=== PATIENT | female | born 1965 | race Caucasian/White ===

== ENCOUNTER 2020-07-26 14:05 | Outpatient (CLI) | payer OTHER, SELFPAY ==
--- NOTE | ~2020-07-26 | US_ITS ---
EXAMINATION: US venous doppler [facility] DATE: 07/26/2020 15:00 INDICATION: Lower limb pain and localized lump posterior to the right knee TECHNIQUE: Grayscale ultrasound images without and with compression and Doppler ultrasound images of the bilateral lower extremity veins were obtained. COMPARISON: None. FINDINGS: The visualized portions of right common femoral vein, profunda (deep) femoral vein, femoral vein, pop liteal vein, posterior tibial veins, peroneal veins, gastrocnemius vein and greater saphenous vein ou tflow are patent. 3.9 x 1.8 x 3.1 cm anechoic Juares's cyst at the right popliteal fossa. The visualized portions of left common femoral vein, profunda femoral vein, femoral vein, popliteal v ein, posterior tibial veins, peroneal veins, gastrocnemius vein and greater saphenous vein outflow ar e patent. IMPRESSION: 1. No deep venous thrombosis in either lower limb. 2. Moderate-sized Juares cyst at the right popliteal fossa which may account for the palpable abnormal ity. Reviewed, dictated and finalized at location A. IMPRESSION: 1. No deep venous thrombosis in either lower limb. 2. Moderate-sized Juares cyst at the right popliteal fossa which may account for the palpable abnormality.
== END 2020-07-26 14:06 | disposition home or self-care (01) ==
PROVIDERS: PCP Internal Medicine; Visit Provider Nurse Practitioner
DX: M79.606 Pain in leg, unspecified (principal); M71.21 Synovial cyst of popliteal space [Baker], right knee
CPT/HCPCS: 93970

== ENCOUNTER 2020-10-25 08:57 | Outpatient (CLI) | payer OTHER, SELFPAY ==
--- NOTE | 2020-10-25 12:00 | NEURO_ITS ---
IMPRESSION: # Complains of tingling of right lower extremity intermittently; History of cystic mass in right popliteal fossa of long duration. # Normal nerve conduction study including motor and sensory nerves. # Normal needle/EMG exam. # Clinical correlation recommended. Nerve Conduction Studies Anti Sensory Summary Table Stim Site NR Peak (ms) P-T Amp (?V) Site1 Site2 Delta-P (ms) Dist (cm) Storm (m/s) Left Sup Fibular Anti Sensory (Ant Lat Mall) 14 cm 3.1 19.5 14 cm Ant Lat Mall 3.1 16.0 52 Right Sup Fibular Anti Sensory (Ant Lat Mall) 14 cm 2.9 7.0 14 cm Ant Lat Mall 2.9 16.0 55 Left Sural Anti Sensory (Lat Mall) Calf 2.9 25.7 Calf Lat Mall 2.9 16.0 55 Right Sural Anti Sensory (Lat Mall) Calf 3.6 15.9 Calf Lat Mall 3.6 16.0 44 Motor Summary Table Stim Site NR Onset (ms) O-P Amp (mV) Site1 Site2 Delta-0 (ms) Dist (cm) Storm (m/s) Left Peroneal Motor (Vastus Med) Ankle 4.1 1.6 Popit Ankle 7.8 38.0 49 Popit 11.9 1.1 Right Peroneal Motor (Vastus Med) Ankle 4.1 2.0 Popit Ankle 7.1 35.0 49 Popit 11.2 1.6 Left Tibial Motor (Abd Bridges Brev) Ankle 5.0 5.6 Knee Ankle 7.2 38.0 53 Knee 12.2 2.0 Right Tibial Motor (Abd Bridges Brev) Ankle 5.3 5.8 Knee Ankle 8.4 37.0 44 Knee 13.7 4.0 F Wave Studies NR F-Lat (ms) L-R F-Lat (ms) Left Peroneal (Mrkrs) (EDB) 48.47 0.00 Right Peroneal (Mrkrs) (EDB) 48.47 0.00 Left Tibial (Mrkrs) (Abd Hallucis) 49.70 0.40 Right Tibial (Mrkrs) (Abd Hallucis) 50.10 0.40 EMG Side Muscle Nerve Root Ins Act Fibs Amp Dur Recrt Comment Right AntTibialis Dp Br Fibular L4-5 Nml Nml Nml Nml Nml Right Gastroc Tibial S1-2 Nml Nml Nml Nml Nml Right Fibularis Long Sup Br Fibular L5-S1 Nml Nml Nml Nml Nml Right Flex Dig Long Tibial L5-S2 Nml Nml Nml Nml Nml Right Ext Dig Brev Dp Br Fibular L5, S1 Nml Nml Nml Nml Nml Left AntTibialis Dp Br Fibular L4-5 Nml Nml Nml Nml Nml Left Gastroc Tibial S1-2 Nml Nml Nml Nml Nml Left Fibularis Long Sup Br Fibular L5-S1 Nml Nml Nml Nml Nml Left Flex Dig Long Tibial L5-S2 Nml Nml Nml Nml Nml Left Ext Dig Brev Dp Br Fibular L5, S1 Nml Nml Nml Nml Nml MTDD
== END 2020-10-25 08:58 | disposition home or self-care (01) ==
PROVIDERS: PCP Internal Medicine; Visit Provider Nurse Practitioner
DX: R20.2 Paresthesia of skin (principal)
CPT/HCPCS: 95886; 95910

== ENCOUNTER 2020-10-31 16:33 | Outpatient (CLI) | payer OTHER, SELFPAY ==
--- NOTE | ~2020-10-31 | MR_ITS ---
EXAMINATION: MR lumbar spine wo con DATE: 10/31/2020 17:19 INDICATION: Lumbar radiculopathy. TECHNIQUE: Magnetic resonance imaging (MRI) of the lumbar spine was performed without intravenous con trast. Sequences included sagittal T2-weighted FSE, sagittal T2-weighted FS FSE, sagittal T1-weighted FSE, and axial T2-weighted FSE. COMPARISON: None FINDINGS: Minimal thoracolumbar dextrocurvature. 3 mm retrolisthesis L5 on S1. Vertebral body heights are esteban l. 6 mm T2 hyperintense lesion in T12 which is isointense to the surrounding marrow on T1-weighted im ages most likely a hemangioma. Severe disc height loss at L5-S1 with degenerative fibrofatty and fibr ovascular endplate changes. Mild disc height loss at L2-L3, L3-L4 and moderate disc height loss at L4 -L5. The conus medullaris terminates at L2. There is normal signal in the caudal spinal cord. 7 mm T2 hyperintense left renal cyst. Paravertebral soft tissues are unremarkable. The following disc levels are specifically discussed: T12-L1: The disc does not extend beyond the endplate margin. There is no facet joint osteoarthritis. There is no neural foraminal stenosis. There is no central canal stenosis. L1-L2: The disc does not extend beyond the endplate margin. There is minimal bilateral facet joint os teoarthritis. There is no neural foraminal stenosis. There is no central canal stenosis. L2-L3: Disc is mildly bulging with superimposed annular fissure and right paracentral disc extrusion with disc material extending couple millimeters cephalad and caudal to the level of the endplates. Th ere is minimal bilateral facet joint osteoarthritis. There is mild bilateral neural foraminal stenosi s. There is mild central canal stenosis. L3-L4: Disc is bulging with annular fissure. There is mild left and moderate right facet joint osteoa rthritis. There is mild bilateral neural foraminal stenosis. There is mild central canal stenosis. L4-L5: Disc is bulging with annular fissure. There is minimal bilateral facet joint osteoarthritis. T here is mild bilateral neural foraminal stenosis. There is mild central canal stenosis. L5-S1: Annular fissure and broad-based disc extrusion extending from foraminal zone to foraminal zone with disc material extending a few millimeter beyond the margins of the endplates. There is mild rig ht and mild to moderate left facet joint osteoarthritis. There is mild to moderate left and moderate right neural foraminal stenosis. There is minimal central canal stenosis. IMPRESSION: 1. Severe lumbosacral and moderate lumbar spondylosis. Reviewed, dictated and finalized at location A. [employer]
== END 2020-10-31 16:34 | disposition home or self-care (01) ==
PROVIDERS: PCP Internal Medicine; Visit Provider Nurse Practitioner
DX: M54.16 Radiculopathy, lumbar region (principal); M43.07 Spondylolysis, lumbosacral region; M43.06 Spondylolysis, lumbar region
CPT/HCPCS: 72148

== ENCOUNTER → 2021-02-03 02:49 | Outpatient (CLI) | payer OTHER, SELFPAY ==
[2021-02-03 19:43] LABS: SARS-CoV-2 RNA PCR Negative
== END ==
PROVIDERS: PCP Internal Medicine; Visit Provider Internal Medicine Gastroenterology
DX: Z01.812 Encounter for preprocedural laboratory examination (principal); Z20.822 Contact with and (suspected) exposure to COVID-19
CPT/HCPCS: C9803; U0003; U0005

== ENCOUNTER 2021-02-07 00:19 | Day surgery (SDC) | payer OTHER, SELFPAY ==
[2021-01-25 13:53] VITALS: BMI 22.9
[2021-02-07 11:15] VITALS: BP 130/87; PULSE 79; RESP 16; TEMP 36.9; O2SAT 98
[2021-02-07] MEDS: LACTATED RINGERS 1,000 ML 150 ML IV CONT (11:27)
--- NOTE | 2021-02-07 12:47 | WPDGICN ---
GI Consult Note Consult date/time: 02/07/21 12:47 HPI: Reason for visit colonoscopy. This very pleasant lady seen in consultation request of the primary physician. Impression: Screening and surveillance colonoscopy. The patient has a history of adenomatous colon polyps and a strong family history colon cancer. Seizure disorder. Marijuana use. Tobacco abuse. Recommendation: Colonoscopy. History: This very pleasant lady has a negative GI review of systems. She has a history adenomatous colon polyps. Patient also has a strong family history of colon cancer. She is here for colonoscopy. Physical examination: General: very pleasant patient in no acute distress. HEENT: Head was normocephalic sclerae is clear mouth without masses neck was supple. Heart: Rate rhythm regular without S3 or S4. Lungs: CTA. Abdomen: Soft with no guarding or rigidity. Bowel sounds were active. Neurologic: Cranial nerves 2 through 12 intact. No focal defects. No clonus. Musculoskeletal system: Revealed no joint tenderness or swelling no muscle atrophy. Extremities: Reveal no significant edema. Skin: Warm and dry with normal turgor. Mental status: intact. Patient is alert and oriented. Review of Systems Review of Systems: All systems reviewed & are unremarkable except as noted in HPI and below PMFSH Past Medical History Medical History (Updated 11/06/20 @ 14:07 by Phuc Blackburn DO) Depression Measles Mumps Seizure disorder Surgical History Surgical History (Updated 12/15/19 @ 07:22 by Shelly Ponce CMA) H/O LEEP 2007 H/O lumpectomy History of cholecystectomy Family History Family History (Updated 12/15/19 @ 13:27 by Shelly Ponce CMA) Mother Family history of cardiovascular disease Heart disease Breast cancer Lung cancer Father Brain aneurysm Carcinoma of colon Social History Social History (Updated 12/15/19 @ 13:27 by Shelly Ponce CMA) Smoking packs per day: 1 Smoking cigarettes per day: 20.0 Years smoked: 10 Smoking pack-years: 10.00 Smoking status: Current every day smoker Tobacco type: cigarettes Smoking end date: 10/20/11 Alcohol intake: never Living arrangements: with family Gender identity (if verbalized by the patient): Female Spiritual care concerns: No Meds Home Medications and Allergies Home Medications Medication Instructions Recorded Confirmed Type cannabidiol 100 mg/mL oral solution PO 12/15/19 11/06/20 History Allergies Allergy/AdvReac Type Severity Reaction Status Date / Time codeine Allergy Unknown Nausea Verified 02/07/21 11:13 ibuprofen Allergy Unknown Verified 02/07/21 11:13 Vital Signs Vital Signs - 24 hr 02/07/21 11:15 Temperature 36.9 C Pulse Rate 79 Respiratory Rate 16 Blood Pressure 130/87 Pulse Oximetry 98
[2021-02-07 13:04] VITALS: BP 101/57; PULSE 76; RESP 20; O2SAT 100
[2021-02-07 13:14] VITALS: BP 88/64; PULSE 72; RESP 21; O2SAT 100
[2021-02-07 13:24] VITALS: BP 100/66; RESP 20; O2SAT 99
== END 2021-02-07 13:45 | disposition home or self-care (01) ==
PROVIDERS: PCP Internal Medicine; Visit Provider Internal Medicine Gastroenterology
PROC: 0DJD8ZZ Inspection of Lower Intestinal Tract, Via Natural or Artificial Opening Endoscopic (ICD-10-PCS; CPT 45378; principal; 2021-02-07 12:30)
DX: Z12.11 Encounter for screening for malignant neoplasm of colon (principal); K64.8 Other hemorrhoids; Z86.010 Personal history of colon polyps; Z80.0 Family history of malignant neoplasm of digestive organs; G40.909 Epilepsy, unspecified, not intractable, without status epilepticus; F32.9 Major depressive disorder, single episode, unspecified; F17.210 Nicotine dependence, cigarettes, uncomplicated; F12.90 Cannabis use, unspecified, uncomplicated
CPT/HCPCS: 45378; J2704; J7120

== ENCOUNTER 2021-12-24 14:04 | Outpatient (CLI) | payer OTHER, SELFPAY ==
[2021-12-24 14:27] LABS: Basophils Percent Auto 0.5 % (0.2-1.2); Eosinophils Absolute Auto 0.1 K/mm3 (0-0.3); Eosinophils Percent Auto 1.2 % (0-4.4); Hematocrit 43.3 % (37.0-47.0); Hemoglobin 14.3 g/dL (12.0-15.0); Immature Granulocyte Absolute 0.01 K/mm3 (0.00-0.031); Immature Granulocyte Percent A 0.1 % (0-0.5); Lymphocytes Absolute Auto 3.89 K/mm3 (0.9-3.2); Lymphocytes Percent Auto 51.1 % (18.3-44.2); Mean Corpuscular Hemoglobin 31.2 pg (26-34); Mean Corpuscular Volume 94.5 fl (80-100); Mean Platelet Volume 9.8 fl (7.4-10.4); Monocytes Absolute Auto 0.5 K/mm3 (0.1-0.6); Neutrophils Absolute Auto 3.1 K/mm3 (1.3-6.7); Neutrophils Percent Auto 40.1 % (45.5-73.1); Platelet Count Result 206 k/mm3 (150-375); Red Blood Count 4.58 M/mm3 (4.2-5.4); Red Cell Distribution Width 11.9 % (11.5-14.5); White Blood Count 7.6 K/mm3 (4.5-10.0)
[2021-12-24 14:38] LABS: Alanine Aminotransferase 20 U/L (4-35); Albumin Level 4.8 g/dL (3.5-5.1); Alkaline Phosphatase 82 U/L (38-126); Anion Gap 4 mmol/L (8-16); Aspartate Amino Transferase 37 U/L (14-36); Bilirubin,Total 0.8 mg/dL (0.2-1.3); Blood Urea Nitrogen 17 mg/dL (7-17); Calcium 9.6 mg/dL (8.4-10.2); Carbon Dioxide 31 mmol/L (22-30); Chloride 105 mmol/L (98-107); Cholesterol 285 mg/dL (0-200); Estimated Glomerular Filt Rate > 60; Glucose 97 mg/dL (65-110); HDL Direct 65 mg/dL; Sodium 140 mmol/L (137-145); Triglycerides 118 mg/dL (<150)
[2021-12-24 14:49] LABS: LDL Cholesterol Direct 148 mg/dL
[2021-12-24 17:03] LABS: Vitamin D 25 Hydroxy 40.9 ng/mL
== END 2021-12-24 14:05 | disposition home or self-care (01) ==
LOC: ANHLAB 14:07
PROVIDERS: PCP Internal Medicine; Visit Provider Nurse Practitioner
DX: E55.9 Vitamin D deficiency, unspecified (principal); F33.1 Major depressive disorder, recurrent, moderate; Z13.29 Encounter for screening for other suspected endocrine disorder; Z13.220 Encounter for screening for lipoid disorders
CPT/HCPCS: 36415; 80053; 80061; 82306; 84443; 85025

== ENCOUNTER 2022-01-01 08:31 | Outpatient (CLI) | payer OTHER, SELFPAY ==
--- NOTE | 2022-01-01 08:50 | ECHO_ITS ---
Patient Info Name: Iliana Baires Age: 56 years : 1965 Gender: Female Ht: 62 in Wt: 128 lbs BSA: 1.60 m2 HR: 60 bpm BP: 120 / 82 mmHg Technical Quality: Good Exam Date: 01/01/2022 9:13 AM Exam Location: [facility] Patient Status: Outpatient Admit Date: 01/01/2022 Staff Ordering Physician: Ira Montez NP Candy Puller: Anson Villegas RDCS, RT Attending Provider: Ira Montez NP Referring Physician: Melida GRANGER; Exam Type: CA echo doppler color flow Study Info Indications R07.9 - Chest pain, unspecified Complete two-dimensional, color flow and Doppler transthoracic echocardiogram is performed. Strain analysis performed. Summary 1. Complete two-dimensional, color flow and Doppler transthoracic echocardiogram is performed. 2. Left ventricular chamber dimension is normal. 3. Left ventricular systolic function is normal, estimated at 60-65%. 4. The left ventricular diastolic function is grade I diastolic dysfunction. 5. E/e' 7 is not elevated. 6. Global longitudinal strain is normal at -22.9%. 7. There is mild mitral valve regurgitation. 8. There is mild tricuspid valve regurgitation. 9. No pulmonary hypertension, estimated pulmonary arterial systolic pressure is 26 mmHg. Left Ventricle E/e' 7 is not elevated. Global longitudinal strain is normal at -22.9%. Left ventricular chamber dimension is normal. Left ventricular systolic function is normal, estimated at 60-65%. The left ventricular diastolic function is grade I diastolic dysfunction. Right Ventricle Right ventricular systolic function is normal and with normal TAPSE 2.9 cm. Right ventricular chamber dimension is normal. Left Atria Left atrial chamber dimension is normal. Right Atria Right atrial chamber dimension is normal. Aortic Valve The aortic valve is trileaflet. There is no aortic valve stenosis. There is no aortic valve regurgitation. Pulmonic Valve There is no pulmonic regurgitation. Mitral Valve There is no mitral valve stenosis. There is mild mitral valve regurgitation. Tricuspid Valve There is mild tricuspid valve regurgitation. No pulmonary hypertension, estimated pulmonary arterial systolic pressure is 26 mmHg. Pericardium/Pleural There is no pericardial effusion. Inferior Vena Cava Normal inferior vena cava with >50% collapse upon inspiration consistent with normal right atrial pressure, 5 mmHg. Aorta The aortic root size at the sinus of Valsalva is normal. Left Ventricular Outflow Tract Name Value Normal LVOT 2D LVOT Diameter 2.0 cm LVOT Doppler LVOT Peak Gradient 4 mmHg LVOT Mean Gradient 2 mmHg LVOT VTI 22 cm LVOT VTI/AV VTI Ratio 0.8 LVOT Stroke Volume 68 ml LVOT CO 3.9 l/min LVOT CI 2.4 l/min/m2 Mitral Valve Name Value Normal -------
== END 2022-01-01 08:32 | disposition home or self-care (01) ==
LOC: ANHCARD 08:32
PROVIDERS: PCP Internal Medicine; Visit Provider Nurse Practitioner
DX: I34.0 Nonrheumatic mitral (valve) insufficiency (principal); I36.1 Nonrheumatic tricuspid (valve) insufficiency; R07.89 Other chest pain
CPT/HCPCS: 93306

== ENCOUNTER 2022-01-14 08:26 | Outpatient (CLI) | payer OTHER, SELFPAY ==
--- NOTE | 2022-01-14 08:57 | EST_ITS ---
Patient Info Name: Iliana Baires Age: 57 years : 1965 Gender: Female Ht: 62 in Wt: 128 lbs BSA: 1.60 m2 HR: 53 bpm BP: 150 / 94 mmHg Heart Rhythm: Sinus Rhythm Exam Date: 01/14/2022 9:54 AM Exam Location: [facility] Stress Patient Status: Outpatient Admit Date: 01/14/2022 Staff Ordering Physician: Ira Montez NP Attending Provider: Phuc Blackburn DO Exercise Technologist: Mckenna Persaud CT Exercise Physician: Andrew Irwin DO Exam Type: CA stress test treadmill Study Info Indications R07.9 - Chest pain, unspecified A treadmill exercise stress test was performed. Summary 1. 1. Negative Alex exercise stress test for ischemic ST changes by ECG criteria. 2. 2. Good functional capacity, achieving 10 METs of workload. 3. 3. Baseline hypertension. 4. 4. Appropriate HR response to exercise. 5. 5. Appropriate HR recovery at 1 minute post exercise. 6. 6. No imaging with stress testing. 7. 7. Patient informed of the above results. Protocol: Alex Stress ECG Details Stage: REST Duration (min): 1 min : 12 sec Speed (mph): 0.0 Grade (%): 0 HR (bpm): 52 SBP (mmHg): 150 DBP (mmHg): 94 METS: --- Stage: REST Duration (min): 12 min : 17 sec Speed (mph): 0.0 Grade (%): 0 HR (bpm): 57 SBP (mmHg): 150 DBP (mmHg): 94 METS: --- Stage: STAGE 1 Duration (min): 1 min : 0 sec Speed (mph): 1.7 Grade (%): 10 HR (bpm): 85 SBP (mmHg): 150 DBP (mmHg): 94 METS: --- Stage: STAGE 1 Duration (min): 2 min : 0 sec Speed (mph): 1.7 Grade (%): 10 HR (bpm): 91 SBP (mmHg): 150 DBP (mmHg): 94 METS: --- Stage: STAGE 1 Duration (min): 3 min : 0 sec Speed (mph): 1.7 Grade (%): 10 HR (bpm): 89 SBP (mmHg): 192 DBP (mmHg): 85 METS: --- Stage: STAGE 2 Duration (min): 1 min : 0 sec Speed (mph): 2.5 Grade (%): 12 HR (bpm): 103 SBP (mmHg): 192 DBP (mmHg): 85 METS: --- Stage: STAGE 2 Duration (min): 2 min : 0 sec Speed (mph): 2.5 Grade (%): 12 HR (bpm): 107 SBP (mmHg): 192 DBP (mmHg): 85 METS: --- Stage: STAGE 2 Duration (min): 3 min : 0 sec Speed (mph): 2.5 Grade (%): 12 HR (bpm): 113 SBP (mmHg): 192 DBP (mmHg): 85 METS: --- Stage: STAGE 3 Duration (min): 1 min : 0 sec Speed (mph): 3.4 Grade (%): 14 HR (bpm): 125 SBP (mmHg): 194 DBP (mmHg): 100 METS: --- Stage: STAGE 3 Duration (min): 2 min : 0 sec Speed (mph): 3.4 Grade (%): 14 HR (bpm): 129 SBP (mmHg): 194 DBP (mmHg): 100 METS: --- Stage: STAGE 3 Duration (min): 3 min : 0 sec Speed (mph): 3.4 Grade (%): 14 HR (bpm): 138 SBP (mmHg): 192 DBP (mmHg): 104 METS: --- Stage: STAGE 4 Duration (min): 0 min : 12 sec Speed (mph): 4.2 Grade (%): 16 HR (bpm): 139 SBP (mmHg): 192 DBP (mmHg): 104 ME
== END 2022-01-14 08:27 | disposition home or self-care (01) ==
LOC: ANHCARD 08:27
PROVIDERS: PCP Internal Medicine; Visit Provider Internal Medicine
DX: R07.9 Chest pain, unspecified (principal)
CPT/HCPCS: 93017

== ENCOUNTER 2023-08-01 09:08 | Outpatient (CLI) | payer OTHER, SELFPAY ==
[2023-08-01 19:41] LABS: Basophils Absolute Auto 0.1 K/mm3 (0.0-0.1); Eosinophils Absolute Auto 0.1 K/mm3 (0-0.3); Eosinophils Percent Auto 1.8 % (0-4.4); Hematocrit 41.9 % (37.0-47.0); Hemoglobin 13.6 g/dL (12.0-15.0); Immature Granulocyte Absolute 0.01 K/mm3 (0.00-0.031); Immature Granulocyte Percent A 0.2 % (0-0.5); Mean Corpuscular HGB Conc 32.5 g/dl (32-36); Mean Corpuscular Hemoglobin 31.1 pg (26-34); Mean Corpuscular Volume 95.9 fl (80-100); Mean Platelet Volume 10.3 fl (7.4-10.4); Monocytes Absolute Auto 0.6 K/mm3 (0.1-0.6); Monocytes Percent Auto 9.8 % (2.6-8.5); Neutrophils Absolute Auto 2.6 K/mm3 (1.3-6.7); Neutrophils Percent Auto 42.2 % (45.5-73.1); Platelet Count Result 236 k/mm3 (150-375); Red Blood Count 4.37 M/mm3 (4.2-5.4); Red Cell Distribution Width 11.8 % (11.5-14.5); White Blood Count 6.2 K/mm3 (4.5-10.0)
[2023-08-01 19:55] LABS: Alanine Aminotransferase 18 U/L (6-35); Albumin Level 4.3 g/dL (3.5-5.1); Alkaline Phosphatase 76 U/L (38-126); Anion Gap 4 mmol/L (8-16); Aspartate Amino Transferase 35 U/L (14-36); Bilirubin,Total 0.4 mg/dL (0.2-1.3); Blood Urea Nitrogen 21 mg/dL (7-17); Calcium 9.4 mg/dL (8.4-10.2); Carbon Dioxide 31 mmol/L (22-30); Chloride 103 mmol/L (98-107); Cholesterol 264 mg/dL (0-200); Estimated Glomerular Filt Rate > 60; Glucose 98 mg/dL (65-110); HDL Direct 62 mg/dL; Potassium 4.4 mmol/L (3.4-5.0); Sodium 138 mmol/L (137-145); Triglycerides 112 mg/dL (<150)
[2023-08-01 20:06] LABS: LDL Cholesterol Direct 132 mg/dL
[2023-08-01 20:21] LABS: Thyroid Stimulating Hormone 0.999 uIU/mL (0.465-4.680)
[2023-08-01 20:29] LABS: Vitamin D 25 Hydroxy 37.1 ng/mL
== END 2023-08-01 09:09 | disposition home or self-care (01) ==
LOC: ANHGOSHLAB 09:10
PROVIDERS: PCP Internal Medicine; Visit Provider Nurse Practitioner
DX: E78.5 Hyperlipidemia, unspecified (principal); R49.8 Other voice and resonance disorders; Z13.29 Encounter for screening for other suspected endocrine disorder; E55.9 Vitamin D deficiency, unspecified
CPT/HCPCS: 36415; 80053; 80061; 82306; 84443; 85025

== ENCOUNTER 2023-09-18 15:38 | Outpatient (CLI) | payer OTHER, SELFPAY ==
--- NOTE | ~2023-09-18 | CT_ITS ---
EXAMINATION:CT lung screening DATE: 09/18/2023 15:57 INDICATION: Encounter for screening for malignant neoplasm. Current smoker with 35 pack year history. TECHNIQUE: Computed tomography (CT) of the chest was performed without intravenous contrast. Automate d exposure control and iterative reconstruction technique were employed. The dose-length product (DLP ) was 60.94 mGy-cm. COMPARISON: None. FINDINGS: There is mild scarring at the lung apices. There is mild atelectasis bilaterally. No pleura l effusion. The heart size is normal. No pericardial effusion. There is severe thoracic spondylosis. There is levoscoliosis of upper thoracic spine. IMPRESSION: 1. Lung-RADS category 2: Benign appearance or behavior. Continue annual screening with noncontrast lo w-dose chest CT in 12 months. Reviewed, dictated and finalized at location A. [employer] IMPRESSION: 1. Lung-RADS category 2: Benign appearance or behavior. Continue annual screeni ng with noncontrast low-dose chest CT in 12 months.
== END 2023-09-18 15:39 | disposition home or self-care (01) ==
PROVIDERS: PCP Internal Medicine; Visit Provider Nurse Practitioner
DX: Z12.2 Encounter for screening for malignant neoplasm of respiratory organs (principal); F17.210 Nicotine dependence, cigarettes, uncomplicated
CPT/HCPCS: 71271

== ENCOUNTER 2024-04-15 10:40 | Outpatient (CLI) | payer OTHER, SELFPAY ==
--- NOTE | ~2024-04-15 | US_ITS ---
Limited ABDOMINAL ULTRASOUND Ordering provider: Ira Montez NP History: . RUQ pain . Comparison: None. FINDINGS: LIVER: Normal size and echotexture. No focal hepatic lesions or perihepatic fluid collections are demar ntified. Normal flow of the portal vein. GALLBLADDER: Surgically removed. BILIARY DUCTS: No evidence for intra or extrahepatic biliary dilation. Common bile duct measures 10 m m in diameter which is within normal limits. PANCREAS: Normal echotexture and size. IMPRESSION: 1. Unremarkable complete ultrasound of the abdomen. Reviewed, dictated and finalized at location A.
[2024-04-15 13:08] LABS: Folic Acid 10.9 ng/mL (2.76->20)
[2024-04-30 12:38] LABS: Arsenic,Urine 15 (<36); Cadmium,Random Urine 0.5 (<1.3); Cobalt,Random Urine 0.5 mcg/L (<2.9); Creatinine,Random Urine 121 mg/dL (20-275); Lead,Urine Results Below (<10); Mercury, Random Urine Results Below (<5); Thallium, Urine 0.2 (<0.5)
== END 2024-04-15 10:41 | disposition home or self-care (01) ==
PROVIDERS: PCP Nurse Practitioner; Visit Provider Nurse Practitioner
DX: R10.11 Right upper quadrant pain (principal); J38.3 Other diseases of vocal cords; R49.8 Other voice and resonance disorders
CPT/HCPCS: 36415; 76705; 82607; 82746; 84443

== ENCOUNTER 2024-05-03 12:51 | Outpatient (CLI) | payer OTHER, SELFPAY ==
--- NOTE | ~2024-05-03 | CT_ITS ---
Non-contrast Head CT History: Dystonia, epilepsy Technique: Axial non-contrast imaging of the brain was performed. Dose reduction technique was used on this scan by utilizing automated exposure control and iterative reconstruction technique. The dose -length product (DLP) was 605.33 mGy-cm. Findings: There is no evidence of intracranial hemorrhage, mass lesion, or acute infarct. Brain par enchyma appears normal. The ventricles and subarachnoid spaces are normal in size. The calvarium ap pears normal. The visualized paranasal sinuses and mastoid air cells are clear. Impression: No significant abnormality seen. Reviewed, dictated and finalized at location . Impression: No significant abnormality seen.
--- NOTE | ~2024-05-03 | CT_ITS ---
CT of the Abdomen and Pelvis: Indication: Abdominal pain Technique: 2.5 mm axial scans were obtained through the abdomen and pelvis following intravenous adm inistration of 100 cc of Omnipaque 350. Dose reduction technique was used on this scan by utilizing a utomated exposure control and iterative reconstruction technique. The dose-length product (DLP) was 2 52.09 mGy-cm. Findings: Scans through the lung bases are unremarkable. The liver, spleen, pancreas, adrenals and right kidney are within normal limits. Dilated common bile duct is probably related to prior cholecystectomy. Probable parapelvic left renal cysts rather than h ydronephrosis. No evidence of aortic aneurysm. No lymphadenopathy. No bowel obstruction or bowel wall thickening. There is no evidence to suggest acute appendicitis. Images through the pelvis were performed. Urinary bladder unremarkable. No adnexal mass seen. No asci terrie. Impression: Dilated common bile duct is probably related to prior cholecystectomy. Probable parapelvic left renal cysts rather than hydronephrosis. Reviewed, dictated and finalized at [facility]. Impression: Dilated common bile duct is probably related to prior cholecystectomy. Probable parapelvic left renal cysts rather than hydronephrosis.
== END 2024-05-03 12:52 | disposition home or self-care (01) ==
PROVIDERS: PCP Nurse Practitioner; Visit Provider Nurse Practitioner Family
DX: R10.11 Right upper quadrant pain (principal); G24.9 Dystonia, unspecified; G40.909 Epilepsy, unspecified, not intractable, without status epilepticus; R74.8 Abnormal levels of other serum enzymes
CPT/HCPCS: 70450; 74177; Q9967

== ENCOUNTER 2024-05-18 07:00 | Outpatient (NON) | payer OTHER, SELFPAY | END 2024-05-18 07:01 | disposition home or self-care (01) | LOC: ANHLAB 05-19 07:05 | PROVIDERS: PCP Nurse Practitioner; Visit Provider Internal Medicine Gastroenterology | DX: R10.11 Right upper quadrant pain (principal) | CPT/HCPCS: 88305 ==

== ENCOUNTER 2024-05-18 10:06 | Day surgery (SDC) | payer OTHER, SELFPAY ==
[2024-04-28 10:52] VITALS: BMI 22.1
[2024-05-04 14:39] VITALS: BMI 22.6
--- NOTE | 2024-05-17 19:42 | PM.HPGS ---
History of Present Illness History of Present Illness Consent: Risks, benefits, and alternatives have been discussed and questions answered. Patient agrees to proceed with procedure. Chief complaint: Right Upper Quadrant Pain Narrative: Iliana Baires is a 59 year old female who reports right upper quadrant pain that has been ongoing since her gallbladder removal. Review of Systems Review of Systems: All systems reviewed & are unremarkable except as noted in HPI and below PMFSH Past Medical History Medical History Breast lump Depression Hyperlipidemia Measles Mumps Prolapse of mitral valve Seizure disorder Vocal tremor Surgical History Surgical History H/O LEEP 2007 H/O lumpectomy History of cholecystectomy Family History Family History Mother Family history of cardiovascular disease Heart disease Breast cancer Lung cancer Father Brain aneurysm Carcinoma of colon Social History Social History Smoking packs per day: 1 Smoking cigarettes per day: 20.0 Years smoked: 6 Smoking pack-years: 6.00 Smoking status: Current every day smoker Tobacco type: cigarettes Alcohol intake: never Substance use: current Substance use type: marijuana Last use: daily Lack of Transportation: No Lack of Food: Never True Current Housing: I Have Housing Concerned About Future Housing: No Difficulty Paying Gas/Electric Bills: No Difficulty Paying for Meds: No Currently Unemployed: No Education: Grade School Difficulty w/ Childcare or Family Care: No Living arrangements: with family Gender identity (if verbalized by the patient): Female Spiritual care concerns: No Meds Home Medications and Allergies Home Medications Medication Instructions Recorded Confirmed Type atorvastatin 10 mg tablet 10 mg PO QHS #90 tabs 09/03/23 05/18/24 Rx methylprednisolone 4 mg tablets in See Rx Instructions PO PER PKG DIR 05/11/24 05/18/24 Rx a dose pack (Medrol (Rey)) #21 ea Allergies Allergy/AdvReac Type Severity Reaction Status Date / Time diphenhydramine Allergy Severe can't Verified 05/18/24 11:26 [From Benadryl] breath codeine Allergy Unknown Nausea Verified 05/18/24 11:26 ibuprofen AdvReac Unknown Verified 05/18/24 11:26 Exam Const: General: alert Orientation/consciousness: patient oriented x3 Resp: Auscultation: clear to auscultation bilaterally Cardio: Rhythm: regular rhythm GI: GI Palp: Yes Soft to palpation and No Tenderness to palpation present (GI) Neuro: General: patient oriented x3 Assessment and Plan Assessment and plan (1) RUQ abdominal pain: Code(s): R10.11 - Right upper quadrant pain Status: Acute Assessment and Plan: EGD with possible biopsy or dilatation or cautery.
[2024-05-18 11:35] VITALS: BP 142/93; PULSE 67; RESP 20; TEMP 36.9; O2SAT 100; BMI 21.3
[2024-05-18] MEDS: LACTATED RINGERS 1,000 ML 150 ML IV CONT (11:40)
--- NOTE | 2024-05-18 11:47 | WPDANESEPPF ---
Anes - Initial Pre Proc Eval Procedure: Operation Date: 05/18/24 13:00 Proposed Procedures p Esophagogastroduodenoscopy - Good Nathan MD Date/Time: 05/18/24 11:47 Surgeon: Good Nathan MD Pre Op Diagnosis: Right Upper Quadrant Pain Patient Data Age: 59 Gender: F Height: 1.57 m Weight: 53 kg Last Vital Signs Temp 36.9 C 05/18/24 11:35 Pulse 67 05/18/24 11:35 Resp 20 05/18/24 11:35 BP 142/93 H 05/18/24 11:35 Pulse Ox 100 05/18/24 11:35 O2 Del Method Room Air 05/18/24 11:35 Allergies Allergy/AdvReac Type Severity Reaction Status Date / Time diphenhydramine Allergy Severe can't Verified 05/18/24 11:26 [From Benadryl] breath codeine Allergy Unknown Nausea Verified 05/18/24 11:26 ibuprofen AdvReac Unknown Verified 05/18/24 11:26 Home Medications Medication Instructions Recorded Confirmed Type atorvastatin 10 mg tablet 10 mg PO QHS #90 tabs 09/03/23 05/18/24 Rx methylprednisolone 4 mg tablets in See Rx Instructions PO PER PKG DIR 05/11/24 05/18/24 Rx a dose pack (Medrol (Rey)) #21 ea Patient hx anesthesia problems: none Family hx anesthesia problems: none Results Review: All pre-operative results and documents have been reviewed as part of the pre-operative evaluation. [facility] Past Medical History Medical History Breast lump Depression Hyperlipidemia Measles Mumps Prolapse of mitral valve Seizure disorder Vocal tremor Surgical History Surgical History H/O LEEP 2007 H/O lumpectomy History of cholecystectomy Family History Family History Mother Family history of cardiovascular disease Heart disease Breast cancer Lung cancer Father Brain aneurysm Carcinoma of colon Social History Social History Smoking packs per day: 1 Smoking cigarettes per day: 20.0 Years smoked: 6 Smoking pack-years: 6.00 Smoking status: Current every day smoker Tobacco type: cigarettes Alcohol intake: never Substance use: current Substance use type: marijuana Last use: daily Lack of Transportation: No Lack of Food: Never True Current Housing: I Have Housing Concerned About Future Housing: No Difficulty Paying Gas/Electric Bills: No Difficulty Paying for Meds: No Currently Unemployed: No Education: Grade School Difficulty w/ Childcare or Family Care: No Living arrangements: with family Gender identity (if verbalized by the patient): Female Spiritual care concerns: No Anes - Eval Final PreProcedure Day of Procedure 05/18/24 11:47 Patient weight: normal Heart: regular rate and rhythm Airway: Mallampati scale class II Neurological: alert and oriented Last oral intake: >/= 8 hours ASA classification: II Emergent: no Anesthetic plan: proceed Anesthesia type and monitoring: general GIVS and standard monitoring Results Review: All pre-operative results and documents have been reviewed as part of the pre-operative evaluation. Informed Consent: The patient's anesthetic plan and its attendant risks and benefits were discussed with the patient/family/POA. Questions were solicited and answers provided to the satisfaction of the patient/family/POA.
[2024-05-18 12:14] VITALS: BP 110/60; PULSE 72; RESP 16; O2SAT 99
--- NOTE | 2024-05-18 12:17 | WPDANESPN ---
Anes - Prog Note Post-Op Date/Time: 05/18/24 12:17 Cardiovascular status: normal Respiratory status: normal Airway patency: baseline Mental status: baseline Post-Op hydration status: normal Vital Signs: Last Vital Signs Temp 36.9 C 05/18/24 11:35 Pulse 67 05/18/24 11:35 Resp 20 05/18/24 11:35 BP 142/93 H 05/18/24 11:35 Pulse Ox 100 05/18/24 11:35 O2 Del Method Room Air 05/18/24 11:35 Pain Score (VAS): 0/10 I/O: Intake & Output 05/17/24 05/18/24 05/18/24 23:59 07:59 15:59 Intake Total 300 Balance 300 Patient Feedback: Patient satisfied with anesthetic care.
[2024-05-18 12:24] VITALS: BP 111/78; PULSE 63; RESP 18; O2SAT 99
== END 2024-05-18 12:42 | disposition home or self-care (01) ==
PROVIDERS: PCP Nurse Practitioner; Visit Provider Internal Medicine Gastroenterology
PROC: 0DJ08ZZ Inspection of Upper Intestinal Tract, Via Natural or Artificial Opening Endoscopic (ICD-10-PCS; CPT 43235; principal; 2024-05-18 13:00)
DX: K21.9 Gastro-esophageal reflux disease without esophagitis (principal); K29.70 Gastritis, unspecified, without bleeding
CPT/HCPCS: 43239

== ENCOUNTER 2024-05-26 07:46 | Outpatient (CLI) | payer OTHER, SELFPAY ==
--- NOTE | ~2024-05-26 | MM_ITS ---
EXAMINATION: MM screening [place] BI w humberto HISTORY: Screening TECHNIQUE: Craniocaudal and mediolateral oblique 3-D tomosynthesis images were obtained and synthetic 2-D images were generated. CAD analysis was submitted and interpreted. COMPARISON: No prior mammogram is available for comparison at this institution. BREAST PARENCHYMAL COMPOSITION: Not dense: There are scattered areas of fibroglandular density. FINDINGS: There is a focal asymmetry laterally in the left breast on CC view. There are no suspicious masses, calcifications or architectural distortion in the right breast to suggest malignancy. IMPRESSION: 1. Focal left breast asymmetry laterally, middle third on CC view. 2. Comparison to previous outside mammograms recommended. BI-RADS Category 0: Incomplete: Needs additional imaging evaluation. Reviewed, dictated and finalized at location B.
== END 2024-05-26 07:47 | disposition home or self-care (01) ==
PROVIDERS: PCP Nurse Practitioner; Visit Provider Obstetrics & Gynecology
DX: Z12.31 Encounter for screening mammogram for malignant neoplasm of breast (principal); R92.8 Other abnormal and inconclusive findings on diagnostic imaging of breast
CPT/HCPCS: 77063; 77067

== ENCOUNTER 2024-06-15 13:07 | Outpatient (CLI) | payer OTHER, SELFPAY ==
--- NOTE | ~2024-06-15 | MMUS_ITS ---
EXAMINATION: MM diagnostic [place] LT w humberto, US breast LT limited HISTORY: Follow-up left breast asymmetry TECHNIQUE: Additional 3-D tomosynthesis images of the left breast were performed and synthetic 2-D im ages were generated. CAD analysis was submitted and interpreted. High resolution Limited left breast ultrasound was performed. COMPARISON: 05/26/2024 BREAST PARENCHYMAL COMPOSITION: Not dense: There are scattered areas of fibroglandular density. FINDINGS: MAMMOGRAPHIC FINDINGS: There are no suspicious masses, calcifications or architectural distortion in the left breast to sugg est malignancy. ULTRASOUND: Limited left breast ultrasound: At 1:00, 3 cm from the nipple there is an oval parallel oriented hypo echoic left breast mass measuring 3 mm without posterior features or internal vascularity. IMPRESSION: 1. Probable benign 3 mm left breast mass at 1:00, 3 cm from the nipple. 2. Recommend 6 month follow-up Limited left breast ultrasound BI-RADS CATEGORY 3-PROBABLY BENIGN FINDING RECOMMENDATION: 6 month follow up recommended. Reviewed, dictated and finalized at location B. IMPRESSION: 1. Probable benign 3 mm left breast mass at 1:00, 3 cm from the nipple. 2. Recommend 6 month follow-up Limited left breast ultrasound BI-RADS CATEGORY 3-PROBABLY BENIGN FINDING RECOMMENDATION: 6 month follow up recommended.
== END 2024-06-15 13:08 | disposition home or self-care (01) ==
PROVIDERS: PCP Nurse Practitioner; Visit Provider Obstetrics & Gynecology
DX: R92.8 Other abnormal and inconclusive findings on diagnostic imaging of breast (principal)
CPT/HCPCS: 76642; 77061; 77065; G0279

== ENCOUNTER 2025-02-17 10:38 | Outpatient (CLI) | payer OTHER, SELFPAY ==
--- NOTE | ~2025-02-17 | US_ITS ---
US breast LT limited 02/17/2025 11:03 Indication: Follow-up left breast mass Procedure: High-resolution Limited ultrasound of the left breast Comparison: Ultrasound dated 06/15/2024 Findings: At 1:00, 3 cm from the nipple there is a stable 3 mm oval circumscribed parallel oriented h ypoechoic mass without posterior features or internal vascularity, likely benign. No additional janeth s are seen. Impression: 1: Stable likely benign 3 mm left breast mass. BI-RADS CATEGORY 3-PROBABLY BENIGN FINDING RECOMMENDATION: Six-month follow-up bilateral mammogram and Limited left breast ultrasound recommende d. Reviewed, dictated and finalized at location A. Impression: 1: Stable likely benign 3 mm left breast mass. BI-RADS CATEGORY 3-PROBABLY BENIGN FINDING RECOMMENDATION: Six-month follow-up bilateral mammogram and Limited left breast ultrasound recommended.
--- OUTSIDE RECORDS SUMMARY | 2025-02-17 11:31 | XMS_ITS | Clinical Summary ---
Author Organization [facility] Address [address] [address] Phone Care Team Providers Care On Line Csr Name Role Phone Phuc Blackburn DO Primary Care Provider Social History Tobacco Use Types Packs/Day Years Used Date Smoking Tobacco: Never Assessed Comments Unknown Sex and Gender Information Value Date Recorded Sex Assigned at Not on file Legal Sex Female 2:49 PM CDT Gender Identity Not on file Sexual Orientation Not on file Plan of Treatment Health Maintenance Due Date Last Done Comments Hepatitis C Virus (HCV) Screening 1965 TdaP Immunization 1965 Hepatitis B Immunization (1 of 3 - 19+ 3-dose series) 01/11/1984 Pap Smear 1986 Cervical Cancer Screening (CCS) 1995 HPV/Cotest 1995 Cologuard 2015 Immunochemical Fecal Occult Blood 2015 Mammogram 2015 Pneumococcal Immunization (5 0+ years) (1 of 1 - PCV) 2015 Zoster Immunization (1 of 2) 2015 Influenza Immunization (#1) 2024 SARS-COV-2 Immunization ( - 2023- season) 2024 Colonoscopy 02/07/2031 02/07/2021 Colorectal Cancer Screening 02/07/2031 Respiratory Syncytial Virus (RSV) Immunization (Adult) (1 - 1-dose 75+ series) 01/11/2040 02/07/2021 Meningococcal Immunization (ACWY) Aged Out No longer eligible based on patient's age to complete this topic Pneumococcal Immunization Combined Aged Out No longer eligible based on patient's age to complete this topic Rotavirus Immunization Aged Out No lo nger eligible based on patient's age to complete this topic Procedures Procedure Name Priority Date/Time Associated Diagnosis Comments COLONOSCOPY Routine 02/07/2021 from Last 3 Months or Most Recently Relevant to Health Maintenance Results * COLONOSCOPY (02/07/2021) Poli Dobbs DO PROCEDURE/MINOR SURGICAL ORDERA BLES Final Result from Last 3 Months or Most Recently Relevant to Health Maintenance Insurance [place] Care Teams On Line Csr Relationship Specialty Start Date End Date Phuc Blackburn DO [facility] [facility] [place] [address] PCP - General Internal Medicine 02/13/21
--- OUTSIDE RECORDS SUMMARY | 2025-02-17 11:31 | XMS_ITS | Clinical Summary ---
Author Organization [facility] Address [address] [place] [address] Care Team Providers Care Fertilizing Machine Operator Name Role Phone Phuc Blackburn DO Primary Care Provider [phone] Source Comments [facility],non-owned Affiliates and Associated Physician Practices is amultiple site organization consisting of ambulatory clinics and hospital sitesin [place], [place], [place] and [place]. This disclosure is being madepursuant to the Care Everywhere program and may not contain all information available regarding this patient. Last updated 18.[facility] Social History Tobacco Use Types Packs/Day Years Used Date Smoking Tobacco: Never Assessed Comments Unknown Sex and Gender Information Value Date Recorded Sex Assigned at Not on file Legal Sex Female 8:56 AM CDT Gender Identity Not on file Sexual Orientation Not on file Plan of Treatment Health Maintenance Due Date Last Done Comments COLOGUARD (AGES 45-75) - COL ON CA SCREENING 1965 COLON MONITORING 1965 COLONOSCOPY - COLON CA SCREENING 1965 CT COLONOGRAPHY - COLON CA SCREENING 1965 Colorectal Cancer Screening 1965 FIT - COLON CA SCREENING 1965 FLEX SIG - COLON CA SCREENING 1965 LIPID TESTING 1965 MAMMOGRAM 1965 PAP SMEAR 1965 HIV SCREENING 01/11/1980 HEPATITIS C SCREENING 01/06/1983 DTAP/TDAP/TD VACCINES (1 - Tdap) 01/11/1984 PNEUMOCOCCAL VACCINE 50+ (1 of 1 - PCV) 2015 ZOSTER VACCINE (1 of 2) 2015 COVID-19 VACCINE ( - 2023-2 5 season) 2024 DEPRESSION SCREENING 10/20/2024 INFLUENZA VACCINE (Season Ended) 2025 Respiratory Syncytial Virus (RSV) Vaccine Pt: or over 60 yrs (1 - 1-dose 75+ series) 01/11/2040 HEPATITIS B VACCINE Aged Out No longe r eligible based on patient's age to complete this topic HIB VACCINE Aged Out No longer eligi ble based on patient's age to complete this topic HPV VACCINE Aged Out No longer eligi ble based on patient's age to complete this topic MENINGOCOCCAL (Group B) VACC INE SHARED DECISION-MAKING Aged Out No longer eligibl e based on patient's age to complete this topic MENINGOCOCCAL GROUPS A/C/Y/W VACCINE Aged Out No longer eligible b ased on patient's age to complete this topic Insurance * Guarantor: ILIANA STANTON Account Type Relation to Patient Date of Phone Billing Address Personal/Family [address] [place] [phone] [facility] SELF PAY NO INSURANCE Member Subscriber Plan / Payer (Ef fective for All Dates) Name:Iliana Stanton Member ID:Not on file Relation to Subscriber:Not on file Name:ILIANA STANTON Subscriber ID:Not on file Address: [address] [place] [phone] Payer ID:Not on file Group ID:Not on file Type:Self Pay Address: [place], [place] * Guarantor: ILIANA STANTON Account Type Relation to Patient Date of Phone Billing Address Personal/Family [address] [place] [phone] [facility] SELF PAY NO INSURANCE Member Subscriber Plan / Payer (Ef fective for All Dates) Name:Iliana Stanton Member ID:Not on file Relation to Subscriber:Not on file Name:ILIANA STANTON Subscriber ID:Not on file Address: [address] [place] [phone] Payer ID:Not on file Group ID:Not on file Type:Self Pay Address: [place], [place] * Guarantor: ILIANA STANTON Account Type Relation to Patient Date of Phone Billing Address Personal/Family [address] [place] [address] [facility] SELF PAY NO INSURANCE Member Subscriber Plan / Payer (Ef fective for All Dates) Name:Iliana Stanton Member ID:Not on file Relation to Subscriber:Not on file Name:ILIANA STANTON Subscriber ID:Not on file Address: [address] [place] [phone] Payer ID:Not on file Group ID:Not on file Type:Self Pay Address: [place], [place] Care Teams Fertilizing Machine Operator Relationship Specialty Start Date End Date Phuc Blackburn DO PCP - General 07/13/19
--- OUTSIDE RECORDS SUMMARY | 2025-02-17 11:31 | XMS_ITS | Clinical Summary ---
Author Organization [facility] Address [facility] [place] [address] Care Team Providers Care Chief Payroll Clerk Name Role Phone Phuc Crooks MD Primary Care Provider [phone] Social History Tobacco Use Types Packs/Day Years Used Date Smoking Tobacco: Never Assessed Comments Unknown Sex and Gender Information Value Date Recorded Sex Assigned at Not on file Legal Sex Female 6:37 PM CDT Gender Identity Not on file Sexual Orientation Not on file Plan of Treatment Health Maintenance Due Date Last Done Comments Cervical Cancer Screening Pa p Smear (Age 30 to 64) Every 3 Years 1965 Colorectal Cancer Screening Colonoscopy (10 Years) 1965 Annual Physical 01/11/1968 Hepatitis C 1983 DTaP, Tdap and Td Vaccines ( 1 - Tdap) 01/11/1984 Cervical Cancer Screening Pa p with HPV Testing (Age 30 to 64) Every 5 Years 1995 Cervical Cancer Screening with HPV 1995 Mammogram Screening 2005 Pneumococcal Vaccine: 50+ Ye ars (1 of 1 - PCV) 2015 Zoster Vaccines (1 of 2) 2015 COVID-19 Vaccine ( - 2023-2 5 season) 2024 RSV Immunization or 60+ Years (1 - 1-dose 75+ series) 01/11/2040 Meningococcal B Vaccine Aged Out No l onger eligible based on patient's age to complete this topic Meningococcal Vaccine Aged Out No lilia sandeep eligible based on patient's age to complete this topic RSV Immunizations Under 20 Months Aged Out No longer eligible based on patient's age to complete this topic Care Teams Chief Payroll Clerk Relationship Specialty Start Date End Date Phuc Crooks MD [address] [address] PCP - General 7/1/13
--- OUTSIDE RECORDS SUMMARY | 2025-02-17 11:32 | XMS_ITS | Referral Summary ---
Author Organization [facility] [address] Address [address] [place] [address] Care Team Providers Care Green Lumber Grader Name Role Phone Phuc Blackburn DO Primary Care Provider [phone] Allergies Active Allergy Reactions Criticality Noted Date Comments Ibuprofen Hives Medium 06/01/2018 Hives Medications atorvastatin (LIPITOR) 10 mg tablet Take 1 tablet (10 mg total) by mouth nightly at bedtime 09/03/2023 Active primidone (MYSOLINE) 50 mg tabletIndicatio ns:Essential Tremor Take 0.5 tablets (25 mg total) by mouth nightly for 7 days, THEN 1 tablet (50 mg total) nightly for 7 days, THEN 1.5 tablets (75 mg total) nightly for 7 days, THEN 2 tablets (100 mg total) nightly for 7 days, THEN 2.5 tablets (125 mg total) nightly for 7 days, THEN 3 tablets (150 mg total) nightly for 7 days, THEN 3.5 tablets (175 mg total) nightly for 7 days, THEN 4 tablets (200 mg total) nightly for 7 days, THEN 4.5 tablets (225 mg total) nightly for 7 days, THEN 5 tablets (250 mg total) nightly. 308 tablet 06/08/2024 Active Active Problems No known active problems Social History Tobacco Use Types Packs/Day Years Used Date Smoking Tobacco: Every Day Smokeless Tobacco: Never Comments:Medical cannabis fo r seizures Hunger Vital Sign Answer Date Recorded Within the past 12 months, y ou worried that your food would run out before you got the money to buy more. Never true 06/08/20 24 Within the past 12 months, t he food you bought just didn't last and you didn't have money to get more. Never true 06/08/2024 Personal Safety Answer Date Recorded Getting School Help Needed Not on file 11/09 Comments Unknown Sex and Gender Information Value Date Recorded Sex Assigned at Not on file Legal Sex Female 4:25 PM CDT Gender Identity Not on file Sexual Orientation Not on file Last Filed Vital Signs Vital Sign Reading Time Taken Comments Blood Pressure 114/79 06/08/2024 9:02 AM CDT Pulse 72 06/08/2024 9:02 AM CDT Temperature 36.8 C (98.2 F) 06/08/2024 9:02 AM CDT Respiratory Rate 14 06/08/2024 9:02 AM CDT Oxygen Saturation 98% 06/13/2020 7:48 PM CDT Inhaled Oxygen Concentration - - Weight 54.4 kg (120 lb) 06/08/2024 9:02 AM CDT Height 157.5 cm (5' 2 ) 06/08/2024 9:02 AM CDT Body Mass Index 21.95 06/08/2024 9:02 AM CDT Plan of Treatment Not on file Procedures Procedure Name Priority Date/Time Associated Diagnosis Comments DIAGNOSTIC MAMMOGRAM BILATERAL W DAT Routine 07/18/2017 1:58 PM CDT from Last 3 Months or Most Recently Relevant to Health Maintenance Results * Diagnostic Mammogram Bilateral W Dat (07/18/2017 1:58 PM CDT) Anatomical Region Laterality Modality Breast Bilateral Mammography 07/18/2017 1:58 PM CDT Impressions 07/18/2017 3:18 PM CDT BI-RAD 2 BENIGN 1. No mammographic or sonographic abnormality at the site of focal pain in the right breast at 10 o'clock, the site of focal pain in the left breast at 2 o'clock, or the site of focal pain in the bilateral subareolar breasts. Any further evaluation of this focal pain should be based on clinical grounds. 2. No mammographic or sonographic evidence of malignancy. A 1 year screening mammogram is recommended. I discussed the above findings and impression with the patient at the time of the examination. Shawn troy/:07/18/2017 15:18:06 Home Appliance Tech: Lorie Mcdowell)(Khalif), [facility] letter sent: Normal Exam Abnormal History Reading location: [facility] BI-RADS: 2 Benign [EOD] Narrative 07/18/2017 3:18 PM CDT - MG BILATERAL DIGITAL DIAGNOSTIC MAMMOGRAM 3D/2D WITH MEDIOLATERAL OBLIQUE CRANIOCAUDAL: 07/18/2017 The study was acquired using full field digital technology and interpreted from soft copy. 2D digital mammographic views, as well as 3D digital tomosynthesis were performed in the CC and MLO projections. CLINICAL: 52-year-old female presents for evaluation of focal burning pain in the bilateral breasts. COMPARISONS: Comparison is made to exams dated: 05/26/2014 mammogram, 05/25/2013 mammogram, and 04/16/2012 mammogram. BREAST TISSUE: There are scattered areas of fibroglandular density. MAMMOGRAPHIC FINDINGS: Metallic BBs are placed over the sites of focal pain in the bilateral breasts. There is no mammographic abnormality at the sites of focal pain. There is a biopsy marking clip in the left breast. There are no suspicious masses, suspicious calcifications, or other suspicious findings in either breast. There has been no significant interval change. Targeted ultrasound will be performed. ULTRASOUND FINDINGS: Targeted ultrasound of the site of focal pain in the right breast at 10 o'clock, 10 cm from the nipple demonstrates normal breast tissue. Targeted ultrasound of the site of focal pain in the left breast at 2 o'clock, 14 cm from the nipple demonstrates normal breast tissue and a morphologically benign intramammary lymph node with a thin cortex and normal echogenic hilum. Targeted ultrasound of the sites of focal pain in the bilateral subareolar breasts demonstrates normal breast tissue. There are no suspicious sonographic findings. Procedure Note Provider, MD Tito - 03/06/2021 - MG BILATERAL DIGITAL DIAGNOSTIC MAMMOGRAM 3D/2D WITH MEDIOLATERAL OBLIQUE CRANIOCAUDAL: 07/18/2017 The study was acquired using full field digital technology and interpretedfrom soft copy. 2D digital mammographic views, as well as 3D digital tomosynthesis were performed in the CC and MLO projections. CLINICAL: 52-year-old female presents for evaluation of focal burning painin the bilateral breasts. COMPARISONS: Comparison is made to exams dated: 05/26/2014 mammogram,05/25/2013 mammogram, and 04/16/2012 mammogram. BREAST TISSUE: There are scattered areas of fibroglandular density. MAMMOGRAPHIC FINDINGS: Metallic BBs are placed over the sites of focalpain in the bilateral breasts. There is no mammographic abnormality at the sitesof focal pain. There is a biopsy marking clip in the left breast. There areno suspicious masses, suspicious calcifications, or other suspicious findingsin either breast. There has been no significant interval change. Targeted ultrasound will be performed. ULTRASOUND FINDINGS: Targeted ultrasound of the site of focal pain in theright breast at 10 o'clock, 10 cm from the nipple demonstrates normal breasttissue. Targeted ultrasound of the site of focal pain in the left breast at 2o'clock, 14 cm from the nipple demonstrates normal breast tissue and amorphologically benign intramammary lymph node with a thin cortex and normal echogenichilum. Targeted ultrasound of the sites of focal pain in the bilateral subareolar breasts demonstrates normal breast tissue. There are no suspicious sonographic findings. IMPRESSION: BI-RAD 2 BENIGN 1. No mammographic or sonographic abnormality at the site of focal painin the right breast at 10 o'clock, the site of focal pain in the left breast at2 o'clock, or the site of focal pain in the bilateral subareolar breasts.Any further evaluation of this focal pain should be based on clinicalgrounds. 2. No mammographic or sonographic evidence of malignancy. A 1 yearscreening mammogram is recommended. I discussed the above findings and impression with the patient at the timeof the examination. Shawn Colin M.D. ab/:07/18/2017 15:18:06 Home Appliance Tech: Lorie Mtz RT (R)(M), [facility] letter sent: Normal Exam Abnormal History Reading location: [facility] BI-RADS: 2 Benign [EOD] us Doni Almazan MD IMG MAMMO PROCEDURES Final Result from Last 3 Months or Most Recently Relevant to Health Maintenance Insurance [facility] Care Teams Green Lumber Grader Relationship Specialty Start Date End Date Phuc Blackburn DO PCP - General 06/13/20
--- OUTSIDE RECORDS SUMMARY | 2025-02-17 11:32 | XMS_ITS | Clinical Summary ---
Author Organization [facility] [address] Address [address] [place] [address] Care Team Providers Care Meat Blender Name Role Phone Phuc Blackburn DO Primary Care Provider [phone] Allergies Active Allergy Reactions Criticality Noted Date [...] on file Sexual Orientation Not on file Obstetrics History Last Filed Vital Signs Vital Sign Reading [...] 06/08/2024 9:02 AM CDT Plan of Treatment Health Maintenance Due Date Last Done Comments Cervical Cancer Screening 1965 Colon Cancer Screening-Colonoscopy 1965 Depression Screening 1965 Hepatitis C Screening 1965 DTaP/Tdap/Td Vaccine (1 - Tdap) 01/11/1976 Hepatitis B Screening 1983 Regular Well Visit/Exam 18-64 1983 Pneumococcal vaccine <65 (1 of 2 - PCV) 01/11/1984 Zoster Vaccine (1 of 2) 2015 Breast Cancer Screening-Mammogram 07/18/2018 017 Influenza Vaccine (Season Ended) 2025 Procedures Procedure Name Priority Date/Time Associated Diagnosis [...] at the time of the examination. Shawn Colin M.D. ab/:07/18/2017 15:18:06 Auto Parts Manager: Lorie Mcdowell)(Khalif), [facility] letter sent: Normal Exam Abnormal History Reading location: [facility] BI-RADS: 2 Benign [EOD] Narrative 07/18/2017 [...] the examination. Shawn Colin M.D. ab/:07/18/2017 15:18:06 Auto Parts Manager: Lorie Mtz RT (R)(M), [facility] letter sent: Normal Exam Abnormal History Reading location: [facility] BI-RADS: 2 Benign [EOD] us Doni Almazan MD IMG MAMMO PROCEDURES Final Result from Last 3 Months or Most Recently Relevant to Health Maintenance Insurance Care Teams Meat Blender Relationship Specialty Start Date End Date Phuc Blackburn DO PCP - General 06/13/20
== END 2025-02-17 10:39 | disposition home or self-care (01) ==
PROVIDERS: PCP Nurse Practitioner; Visit Provider Obstetrics & Gynecology
DX: R92.8 Other abnormal and inconclusive findings on diagnostic imaging of breast (principal)
CPT/HCPCS: 76642

== ENCOUNTER 2025-03-02 11:06 | Outpatient (CLI) | payer OTHER, SELFPAY ==
--- OUTSIDE RECORDS SUMMARY | 2025-03-02 11:22 | XMS_ITS | Clinical Summary ---
Author Organization [facility] Address [address] [place] [address] Care Team Providers Care Medical Or Surgical Instrument Maker Name Role Phone Phuc Blackburn DO Primary Care Provider [phone] Source Comments [facility],non-owned Affiliates and Associated Physician Practices is amultiple site organization consisting of ambulatory clinics and hospital sitesin [place], [place], [place] and [place]. This disclosure is being madepursuant to the Care Everywhere program and may not contain all information available regarding this patient. Last updated 18.[facility] [employer] Social History Tobacco Use Types Packs/Day Years [...] patient's age to complete this topic Insurance [facility] Address: [address] [phone] * Guarantor: ILIANA STANTON Account Type Relation to Patient Date of Phone Billing Address Personal/Family [address] [place] [phone] [facility] SELF PAY NO INSURANCE Member Subscriber Plan / Payer (Ef fective for All Dates) Name:Iliana Stanton Member ID:Not on file Relation to Subscriber:Not on file Name:ILIANA STNATON Subscriber ID:Not on file Address: [address] [place] [phone] Payer ID:Not on file Group ID:Not on file Type:Self Pay Address: [place], [place] * Guarantor: ILIANA STANTON Account Type Relation to Patient Date of Phone Billing Address Personal/Family [address] [place] [phone] [facility] SELF PAY NO INSURANCE Member Subscriber Plan / Payer (Ef fective for All Dates) Name:Iliana Stanton Member ID:Not on file Relation to Subscriber:Not on file Name:ILIANA STANTON Subscriber ID:Not on file Address: [address] [place] [phone] Payer ID:Not on file Group ID:Not on file Type:Self Pay Address: [place], [place] * Guarantor: ILIANA STANTON Account Type Relation to Patient Date of Phone Billing Address Personal/Family [address] [place] [address] [facility] SELF PAY NO INSURANCE Member Subscriber Plan / Payer (Ef fective for All Dates) Name:Iliana Stanton Member ID:Not on file Relation to Subscriber:Not on file Name:ILIANA STANTON Subscriber ID:Not on file Address: [address] [place] [phone] Payer ID:Not on file Group ID:Not on file Type:Self Pay Address: [place], [place] Care Teams Medical Or Surgical Instrument Maker Relationship Specialty Start Date End Date Phuc Blackburn DO PCP - General 07/13/19
--- OUTSIDE RECORDS SUMMARY | 2025-03-02 11:22 | XMS_ITS | Referral Summary ---
Author Organization [facility] [place] [address] Address [address] [place] [address] Care Team Providers Care Showroom Manager Name Role Phone Phuc Blackburn DO Primary Care Provider [phone]- [phone] Allergies Active Allergy Reactions Criticality Noted Date [...] time of the examination. Shawn troy/:07/18/2017 15:18:06 Logistics Technician: Lorie Mcdowell)(Khalif), [facility] letter sent: Normal Exam Abnormal History Reading location: [facility] BI-RADS: 2 Benign [EOD] Narrative 07/18/2017 3:18 [...] the examination. Shawn Colin M.D. ab/:07/18/2017 15:18:06 Logistics Technician: Lorie Mtz RT (R)(M), [facility] letter sent: Normal Exam Abnormal History Reading location: [facility] BI-RADS: 2 Benign [EOD] us Doni Almazan MD IMG MAMMO PROCEDURES Final Result from Last 3 Months or Most Recently Relevant to Health Maintenance Insurance [facility] Care Teams Showroom Manager Relationship Specialty Start Date End Date Phuc Blackburn DO PCP - General 06/13/20
--- OUTSIDE RECORDS SUMMARY | 2025-03-02 11:22 | XMS_ITS | Clinical Summary ---
Author Organization [facility] Address [address] [address] Phone Care Team Providers Care Physician Office Nurse Name Role Phone Phuc Blackburn DO Primary [...] Health Maintenance Insurance [place] Care Teams Physician Office Nurse Relationship Specialty Start Date End Date Phuc Blackburn DO [facility] [facility] [place] [address] PCP - General Internal Medicine 02/13/21
--- OUTSIDE RECORDS SUMMARY | 2025-03-02 11:22 | XMS_ITS | Clinical Summary ---
Author Organization [facility] Address [facility] [place] [address] Care Team Providers Care Skirt Maker Name Role Phone Phuc Crooks MD Primary Care Provider [phone] Social History Tobacco Use Types Packs/Day Years [...] age to complete this topic Care Teams Skirt Maker Relationship Specialty Start Date End Date Phuc Crooks MD PCP - General 04/19/13
--- OUTSIDE RECORDS SUMMARY | 2025-03-02 11:22 | XMS_ITS | Clinical Summary ---
Author Organization [facility] [place] [address] Address [address] [place] [address] Care Team Providers Care Slip Presser Name Role Phone Phuc Blackburn DO Primary Care Provider [phone] Allergies Active Allergy Reactions Criticality Noted Date [...] the examination. Shawn Colin M.D. ab/:07/18/2017 15:18:06 Operations Support Specialist: Lorie Mcdowell)(Khalif), [facility] letter sent: Normal Exam Abnormal History Reading location: [facility] BI-RADS: 2 Benign [EOD] Narrative 07/18/2017 [...] the examination. Shawn Colin M.D. ab/:07/18/2017 15:18:06 Operations Support Specialist: Lorie Mtz RT (R)(M), [facility] letter sent: Normal Exam Abnormal History Reading location: [facility] BI-RADS: 2 Benign [EOD] us Doni Almazan MD IMG MAMMO PROCEDURES Final Result from Last 3 Months or Most Recently Relevant to Health Maintenance Insurance Care Teams Slip Presser Relationship Specialty Start Date End Date Phuc Blackburn DO PCP - General 06/13/20
[2025-03-02 11:38] LABS: Basophils Percent Auto 0.6 % (0.2-1.2); Eosinophils Absolute Auto 0.2 K/mm3 (0-0.3); Eosinophils Percent Auto 2.4 % (0-4.4); Hematocrit 45.4 % (37.0-47.0); Hemoglobin 14.9 g/dL (12.0-15.0); Immature Granulocyte Absolute 0.01 K/mm3 (0.00-0.031); Immature Granulocyte Percent A 0.2 % (0-0.5); Lymphocytes Percent Auto 46.1 % (18.3-44.2); Mean Corpuscular HGB Conc 32.8 g/dl (32-36); Mean Corpuscular Volume 94.4 fl (80-100); Mean Platelet Volume 9.9 fl (7.4-10.4); Monocytes Absolute Auto 0.5 K/mm3 (0.1-0.6); Monocytes Percent Auto 7.5 % (2.6-8.5); Neutrophils Absolute Auto 2.7 K/mm3 (1.3-6.7); Neutrophils Percent Auto 43.2 % (45.5-73.1); Platelet Count Result 221 k/mm3 (150-375); Red Blood Count 4.81 M/mm3 (4.2-5.4); Red Cell Distribution Width 11.9 % (11.5-14.5); White Blood Count 6.3 K/mm3 (4.5-10.0)
[2025-03-02 12:05] LABS: Alanine Aminotransferase 23 U/L (6-35); Albumin Level 4.5 g/dL (3.5-5.1); Alkaline Phosphatase 84 U/L (38-126); Anion Gap 6 mmol/L (4-12); Aspartate Amino Transferase 33 U/L (14-36); Bilirubin,Total 0.7 mg/dL (0.2-1.3); Blood Urea Nitrogen 18 mg/dL (7-17); Calcium 9.6 mg/dL (8.4-10.2); Carbon Dioxide 30 mmol/L (22-30); Chloride 104 mmol/L (98-107); Cholesterol 266 mg/dL (0-200); Estimated Glomerular Filt Rate > 60; Glucose 101 mg/dL (65-110); HDL Direct 76 mg/dL; Potassium 4.2 mmol/L (3.4-5.0); Sodium 140 mmol/L (137-145); Triglycerides 163 mg/dL (<150)
[2025-03-02 12:16] LABS: LDL Cholesterol Direct 114 mg/dL
== END 2025-03-02 11:07 | disposition home or self-care (01) ==
LOC: ANHLAB 11:07
PROVIDERS: PCP Nurse Practitioner; Visit Provider Nurse Practitioner
DX: E78.2 Mixed hyperlipidemia (principal); Z13.29 Encounter for screening for other suspected endocrine disorder
CPT/HCPCS: 36415; 80053; 80061; 85025